=== PATIENT | female | born 1985 | race Caucasian/White ===

== ENCOUNTER → 2016-09-09 | Outpatient (CLI) | payer BC | END | disposition home or self-care (01) | LOC: C.PAPS 12:20 | PROVIDERS: ATTEND Physician Assistant | DX: Z01.419 Encounter for gynecological examination (general) (routine) without abnormal findings (principal) ==

== ENCOUNTER 2021-11-15 11:49 | Inpatient (IN) ==
[2021-11-15] MEDS ORDERED: OXYTOCIN 30 UNITS/500 ML BAG IV PRN ×3 (12:21→16:56)
[2021-11-15] MEDS ORDERED: LACTATED RINGER'S 1,000 ML IV PRN (12:21)
[2021-11-15] MEDS ORDERED: PENICILLIN G POTASSIUM 6 MU in DEXTROSE 5% 250 ML IV STA (13:03)
[2021-11-15 13:19] LABS: Hematocrit (blood only) 33.7 % (34.1-44.9); Hemoglobin 11.7 g/dl (12.0-16.0); Mean Corpuscular Hemoglobin 29.8 pg (25.0-34.0); Mean Corpuscular Hgb Conc 34.7 g/dL (32.0-36.0); Mean Platelet Volume 10.4 fL (9.4-12.3); Platelet Count 191 K/uL (130-400); RDW Coefficient of Variation 12.4 % (11.5-14.5); RDW Standard Deviation 38.8 fL (36.4-46.3); Red Blood Count 3.92 M/uL (3.93-5.22); White Blood Count 10.55 K/ul (4.8-10.8)
[2021-11-15] MEDS ORDERED: SODIUM CHLORIDE 0.9% INJ 10 ML VIAL ONE (14:13)
[2021-11-15] MEDS ORDERED: BUPIVACAINE 0.25% 30 ML VIAL ONE (14:13)
[2021-11-15] MEDS ORDERED: ePHEDrine sulfate 50 MG/ML AMP ONE (14:13)
[2021-11-15] MEDS ORDERED: LIDOCAINE 2%/EPINEPHRINE 1:200,000 20 ML SDV ONE (14:13)
[2021-11-15] MEDS ORDERED: fentaNYL citrate 100 MCG/2 ML VIAL ONE (14:13)
[2021-11-15] MEDS ORDERED: fentaNYL 2MCG/ML ROPIVACAINE 1.25MG/ML 100 ML BAG EPI ONE (14:14)
--- NOTE | 2021-11-15 14:19 | History & Physical Report ---
Date of Service November 15, 2021 Assessment & Plan (1) Active labor: Plan: 36-year-old at 35 weeks 3 days gestational age presents in labor. - Fetus: Cat 1 - Labor: Progressing. Spontaneous rupture of membranes. Plan to get epidural. - GBS not yet collected. Prophylax with antibiotics - Vitals normal Admission and Anticipated Discharge Date Admission Date: November 15, 2021 History of Present Illness Chief Complaint: Spontaneous Rupture of Membranes Primary Care Provider: [place] Randhawa Miguelina De Guzman is a 36 y/o female currently at 35weeks 5days WGA with an RADHA 12/15/2021 as determined by LMP who is here after spontaneous rupture of membranes this morning at 9:50. States that she feels she was also having contractions every 5 minutes that last for about a minute. Her was complicated by advanced maternal age, positive for Hep B in 2016. Of note had prior PPROM with delivery at 33 weeks. + contractions; + movement; + fluid loss; - bloody show External FHT and external uterine monitors used; Category 1 tracing; moderate FHT variability. Had regular appointments with OB. Labs: (05/06/21) Blood type: A+ Antibody screen: negative H.7 (today) Hct: 33.7 (today) WBC: 10.55 (today) Plt: 191 (today) Rubella: immune VDRL/RPR: nonreactive Gonorrhea: not detected Chlamydia: not detected HIV: negative HbSAg: negative GBS: order placed Other screens: msafp declined panorama low risk--smp neg cf/sma Allergies Allergy/AdvReac Type Severity Reaction Status Date / Time No Known Allergies Allergy Verified 11/15/21 14:04 Home Medications Medication Instructions Recorded Confirmed Type prenat.vits,savannah,izc-wrug-eyalk 1 tab PO DAILY 03/18/19 11/15/21 History docusate sodium 100 mg capsule 100 mg PO DAILY PRN 01/20/20 11/15/21 History (Colace) Patient History Medical History Chronic fatigue Hepatitis B History of Brenda-Rizvi virus infection Hx of varicella Missed Surgical History History of tonsillectomy and adenoidectomy [place] teeth removed Family History Grandmother (Paternal) Diabetes Father Hypertension Dyslipidemia Grandmother (Maternal) Colorectal cancer Grandfather Bladder cancer Bone cancer Sister Premature labor in third trimester Family/Other Omphalocele Aunt Lung cancer Denies family history of Ovarian cancer Breast cancer Social History (Updated 04/28/21 @ 11:01 by Funmilayo KOEHLER RN) Smoking Status: Never smoker Hx Alcohol Use: No Hx Substance Use: No Preferred Language: Icelandic Social Science Manager Required: No Beliefs That Will Affect Care: None marital status: marital status details: Justo De Guzman (42) [phone] Current Living Situation: Spouse Current Living Situation Comment: and daughter, 3 dogs current occupational status: employed current occupation: Speech Language Pathologist- [employer] Other Information That Helps Us Care for You: No Feels Safe at Home: Yes Safety Concerns: Feels Safe At This Time Assistive Devices: None OB History : 3 Full term: 0 Premature: 1 Total Number of Induced Abortions: 0 Total Number of Spontaneous Abortions: 1 Ectopics: 0 Multiple births: 0 Number of Living Children: 1 Review of Systems Denies fever, chills, sweats Denies shortness of breath, difficulty breathing, chest pain, palpitations, chest pressure. Denies breast pain. Denies dysuria. Denies headache or changes in vision. Physical Exam Physical Exam: General: Alert, oriented. No acute distress. Cardiac: Regular rate and rhythm, no murmurs/rubs/gallops. Respiratory: Clear to auscultation bilaterally a/p, no wheezes/rales/rhonchi. No increased work of breathing. Symmetrical chest rise. No respiratory distress. Abdomen: Gravid; Position of fetus: longitudinal cephalic confirmed with US Pelvic: Dilation 4 cm; Effacement 100% ; Station [address] Juan Lower Extremities: No lower extremity edema or swelling. No deep calf pain. Jazmyne's negative bilaterally Results & Data ([facility]) Vital Signs (Past 12 Hours) Vital Signs Temp Pulse Resp BP 11/15/21 13:36 36.9 C 20 11/15/21 12:05 96 H 132/73 Laboratory Results 11/15/21 11/15/21 Range/Units 12:58 12:15 WBC 10.55 (4.8-10.8) K/ul RBC 3.92 L (3.93-5.22) M/uL Hgb 11.7 L (12.0-16.0) g/dl Hct 33.7 L (34.1-44.9) % MCV 86.0 (80.0-100.0) fL MCH 29.8 (25.0-34.0) pg MCHC 34.7 (32.0-36.0) g/dL RDW Std Deviation 38.8 (36.4-46.3) fL RDW Coeff of Josiane 12.4 (11.5-14.5) % Plt Count 191 (130-400) K/uL MPV 10.4 (9.4-12.3) fL SARS-CoV-2, RNA, NAAT NEGATIVE (NEGATIVE) Supervising Physician Co-Signing Physician Notes Resident Physician Supervision Note: I was present with Dr. Pierson during the history and exam. I discussed the case with the resident and agree with the findings and plan as documented in the note. Any exceptions or clarifications are listed here: 36yo @ 09/11 with SROM and spontaneous labor. AMA, h/o Hep B+. Admit to L&D. Penicillin for GBS unknown. Documented By: Marleny Juan DO Resident Activity Tracking Resident Involvement: Resident Care Provided Care Provided: OB Delivery
[2021-11-15] MEDS ORDERED: ONDANSETRON INJ 2 MG/ML 2 ML VIAL IV PRN (14:45)
[2021-11-15] MEDS ORDERED: diphenhydrAMINE 50 MG/ML VIAL IV PRN (14:45)
[2021-11-15] MEDS ORDERED: ePHEDrine sulfate 50 MG/ML AMP IV PRN (14:45)
[2021-11-15] MEDS ORDERED: NALOXONE HCL 1 MG in SODIUM CHLORIDE 0.9% 1000ML 1,000 ML IV PRN (14:45)
[2021-11-15] MEDS ORDERED: NALBUPHINE HCL INJ 10 MG/ML AMP IV PRN (14:45)
[2021-11-15] MEDS ORDERED: NALOXONE HCL 0.4 MG/1 ML VIAL/CARP IV PRN (14:45)
[2021-11-15] MEDS ORDERED: fentaNYL 2MCG/ML ROPIVACAINE 1.25MG/ML 100 ML BAG EPI PRN (14:45)
--- NOTE | 2021-11-15 14:48 | Anesthesiology Consultation ---
Date of Service November 15, 2021 Assessment & Plan Chart Review Chart Review: Patient NOT seen in Pre Admission Testing and Acceptable Risk for Labor Epidural Consults Requested none ASA ASA2 Proposed Anesthesia Anesthesia Type: Labor Epidural and CSE Risk / Benefits Reviewed With: PT / POA / Parent / Guardian, Accepts Plan and Informed Consent Obtained History Height/Weight Height: 5 ft 3 in Weight: 85.275 kg Allergies Allergy/AdvReac Type Severity Reaction Status Date / Time No Known Allergies Allergy Verified 11/15/21 14:04 Medications Home Medications Medication Instructions Recorded Confirmed Last Taken prenat.vits,savannah,zjo-zccc-yehyq 1 tab PO DAILY 03/18/19 11/15/21 11/15/21 07:00 docusate sodium 100 mg capsule 100 mg PO DAILY PRN 01/20/20 11/15/21 11/14/21 21:00 (Colace) Active Medications Generic Name Dose Route Start Last Admin Trade Name Freq PRN Reason Stop Dose Admin Lactated Ringer's 1,000 mls @ 125 mls/hr 11/15/21 12:21 11/15/21 13:56 Lr IV 11/17/21 12:20 125 mls/hr .Q8H PRN Administration L&D Protocol Protocol NPO Date Last Intake of Fluids: 11/15/21 Time Last Intake of Fluids: 14:00 Date Last Intake of Solids: 11/15/21 Time Last Intake of Solids: 08:00 Past Medical History Medical History Chronic fatigue Hepatitis B History of Brenda-Rizvi virus infection Hx of varicella Missed Exercise / Class Metabolic Activity II 4-5 Yardwork/Stairs/Walk up hill Past Family History Family History Grandmother (Paternal) Diabetes Father Hypertension Dyslipidemia Grandmother (Maternal) Colorectal cancer Grandfather Bladder cancer Bone cancer Sister Premature labor in third trimester Family/Other Omphalocele Aunt Lung cancer Denies family history of Ovarian cancer Breast cancer Past Surgical History Surgical History History of tonsillectomy and adenoidectomy [place] teeth removed Past Anesthesia History No Hx of Anesthesia Complications and No Family Hx of Anesthesia Complications History of PONV No Hx of PONV and No Hx of Motion Sickness Social History Smoking Status: Never smoker Hx Alcohol Use: No Hx Substance Use: No substance use type: does not use Review of Systems no chest pain or sob Physical Exam Vital Signs Last Vital Signs Temp 36.9 C 11/15/21 13:36 Pulse 119 H 11/15/21 14:45 Resp 20 11/15/21 13:36 BP 132/73 11/15/21 12:05 Pulse Ox 99 11/15/21 14:45 ENMT Mouth: no TMJ abnormality Thyromental Distance: > or= 3.5 Finger Breadths Mallampati Class: II Neck normal visual inspection Respiratory normal respiratory effort Auscultation: lungs clear to auscultation bilaterally Cardiovascular Rate/Rhythm: regular rate and regular rhythm Musculoskeletal Spine: normal cervical ROM Neurologic moves all extremities Psychiatric Orientation: alert and oriented x 3 Testing Laboratory Results 11/15/21 12:58
--- NOTE | 2021-11-15 16:32 | Delivery Summary ---
Vaginal Delivery Summary Date of Service November 15, 2021 Vaginal Delivery Summary and 1st Degree LAC Vaginal Delivery Summary: Pre-delivery diagnoses: 36yo @ 35 5/, spontaneous labor/SROM, AMA, h/o Hep B 2015 (current testing negative) Post-delivery diagnoses: same Procedure: spontaneous vaginal delivery Surgeon: Malreny Juan DO Complications: none Findings: Viable female . Apgars: 8/8. Weight pending, please see nursery records. Estimated blood loss: Description of delivery: The patient arrived in spontaneous labor with SROM at home, rec'd one dose of Penicillin for GBS, progressed to complete with epidural anesthesia. She then began to push. She spontaneously vaginally delivered a viable from the cephalic presentation. The head delivered in DAMARIS position. Tight nuchal cord - delivered through. The anterior shoulder de livered, followed by the posterior shoulder, followed by the body. The baby was placed on mother's abdomen and a spontaneous cry was heard. Delayed cord clamping was employed, and the cord was doubly clamped and cut. A segment was retained for cord gases. Cord blood was obtained. The placenta was delivered spontaneously intact with a 3-vessel cord. The uterus and vagina were swept of clots and debris. IV pitocin was given. The uterus became firm. The cervix, vagina, and perineum were inspected and a first degree laceration was noted and repaired in standard fashion with 3-0 vicryl. Excellent hemostasis was observed. The mother and baby are recovering in stable and good condition in the room. Sponge, needle and instrument counts were correct x 2. Marleny Juan DO [facility] Vaginal Delivery Charge Vaginal Delivery Codes: 04734 global code for the antepartum, delivery, and post- Delivery Type Details: and 1st Degree LAC
[2021-11-15] MEDS ORDERED: HYDROCORTISONE ACETATE 25 MG SUPP PR PRN (16:56)
[2021-11-15] MEDS ORDERED: ACETAMINOPHEN 325 MG TAB PO PRN (16:56)
[2021-11-15] MEDS ORDERED: oxyCODONE/ACETAMINOPHEN 5mg/325mg TAB PO PRN (16:56)
[2021-11-15] MEDS ORDERED: DIPHTHERIA/TETANUS/PERTUSSIS 0.5 ML SYR/VIAL IM ONE (16:56)
[2021-11-15] MEDS ORDERED: BENZOCAINE 20% AER SPR 82.5 GM CAN EXT PRN (16:56)
[2021-11-15] MEDS ORDERED: bisacodyL 10 MG SUPP PR PRN (16:56)
[2021-11-15 16:59] LABS: Base Excess Cord Venous Blood -0.5 mEq/L (-7.7-1.9); Cord Venous Blood HCO3 24 mmol/L (18.4-26.8); Cord Venous Blood PCO2 39 mmHg (30.4-57.2); Cord Venous Blood PO2 41 mmHg (14.1-43.3); O2 Saturation Cord Venous Bld 82.2 % (<68)
--- NOTE | 2021-11-15 17:06 | Anesthesia Procedure Note ---
Date of Service November 15, 2021 Anesthesia Post Epidural Note Vital Signs Vital Signs: Temp Pulse Resp BP Pulse Ox 36.7 C 90 18 105/55 L 98 11/15/21 16:31 11/15/21 17:02 11/15/21 16:31 11/15/21 17:02 11/15/21 16:25 Pain Intensity Abdomen: Pain Intensity: 1 Notes Mental Status: alert / awake / arousable and participated in evaluation Nausea / Vomiting: adequately controlled Pain: adequately controlled Airway Patency, RR, SpO2: stable & adequate BP & HR: stable & adequate Hydration State: stable & adequate Neuraxial Anesthesia: was administered and sensory block is resolving Anesthetic Complications: no major complications apparent and Pt Satisfied with anesthetic care Epidural: Removed without complications and With tip intact
[2021-11-15] MEDS ORDERED: PENICILLIN G POTASSIUM 3 MU in DEXTROSE 5% 100 ML IV PRN (17:17)
[2021-11-15 17:25] LABS: CO2 Cord Arterial Blood 51 mmHg (39.1-73.5); HCO3 Cord Arterial Blood 25 mmol/L (19.7-28.5); Oxygen Sat Cord Arterial Blood < 60.0 % (<60); PO2 Cord Arterial Blood 24 mmHg (4.1-31.7)
[2021-11-15] MEDS: IBUPROFEN 600 MG TAB PO PRN (20:30)
[2021-11-15] MEDS: DOCUSATE SODIUM 100 MG CAP PO SCH (20:31)
[2021-11-16] MEDS: IBUPROFEN 600 MG TAB PO PRN ×4 (03:25→19:47)
--- NOTE | 2021-11-16 05:00 | Obstetrical Progress Note ---
Date of Service <Britany Pierson DO - Last Filed: 11/16/21 06:16> November 16, 2021 Assessment & Plan <Britany Pierson DO - Last Filed: 11/16/21 06:16> (1) Status post vaginal delivery: Feels well today. Eating well, voiding well, ambulating well. - OOB, ambulation, diet progression as tolerated <Marleny Juan, DO - Last Filed: 11/16/21 07:50> (1) Status post vaginal delivery: Subjective <Britany Pierson, DO - Last Filed: 11/16/21 06:16> Miguelina is a 36 y/o female who is now PPD # 1 following spontaneous vaginal delivery at 35 5/7 . Reports feeling well overall this morning. Minimal abdominal cramping & pain well managed on analgesics. Voiding. Tolerating meals overnight and able to ambulate some. Is passing gas, but bowel movements. Some persistent lochia with some improvement this morning. Breast/Bottle feeding. Review of Systems Denies fever, chills, sweats Denies shortness of breath, difficulty breathing, chest pain, palpitations, chest pressure. Denies breast pain. Denies dysuria. Denies headache or changes in vision. Physical Exam <Britany Pierson DO - Last Filed: 11/16/21 06:16> General: Alert, oriented. No acute distress. Cardiac: Regular rate and rhythm, no murmurs/rubs/gallops. Respiratory: Clear to auscultation bilaterally a/p, no wheezes/rales/rhonchi. No increased work of breathing. Symmetrical chest rise. No respiratory distress. Abdomen: Soft, nontender, nondistended. Bowel sounds present. Uterus: Uterine fundus firm Lower Extremities: No lower extremity edema or swelling. No deep calf pain. Jazmyne's negative bilaterally. Results & Data ([facility]) <Britany Pierson, DO - Last Filed: 11/16/21 06:16> Vital Signs (Past 12 Hours) Vital Signs Temp Pulse Pulse Resp BP BP 11/16/21 04:00 36.6 C 83 18 92/63 L 11/15/21 23:55 36.7 C 83 17 92/56 L 11/15/21 20:00 36.9 C 84 18 105/70 11/15/21 18:31 88 114/64 11/15/21 18:16 91 H 114/63 11/15/21 18:01 85 108/65 11/15/21 17:46 86 112/64 11/15/21 17:31 90 109/61 11/15/21 17:16 81 104/57 L 11/15/21 17:02 90 105/55 L Laboratory Results 11/15/21 11/15/21 11/15/21 Range/Units 16:14 16:14 12:58 WBC 10.55 (4.8-10.8) K/ul RBC 3.92 L (3.93-5.22) M/uL Hgb 11.7 L (12.0-16.0) g/dl Hct 33.7 L (34.1-44.9) % MCV 86.0 (80.0-100.0) fL MCH 29.8 (25.0-34.0) pg MCHC 34.7 (32.0-36.0) g/dL RDW Std Deviation 38.8 (36.4-46.3) fL RDW Coeff of Josiane 12.4 (11.5-14.5) % Plt Count 191 (130-400) K/uL MPV 10.4 (9.4-12.3) fL Cord ABG pH 7.30 (7.1-7.38) Cord ABG pCO2 51 (39.1-73.5) mmHg Cord ABG pO2 24 (4.1-31.7) mmHg Cord ABG HCO3 25 (19.7-28.5) mmol/L Cord ABG Base Excess -2.0 (-9-1.8) mEq/L Cord ABG O2 Sat < 60.0 (<60) % Cord VBG pH 7.40 (7.20-7.44) Cord VBG pCO2 39 (30.4-57.2) mmHg Cord VBG pO2 41 (14.1-43.3) mmHg Cord VBG HCO3 24 (18.4-26.8) mmol/L Cord VBG Base Excess -0.5 (-7.7-1.9) mEq/L Cord VBG O2 Sat 82.2 H (<68) % Blood Gas Comments B[facility]TISTE BAPTISTE SARS-CoV-2, RNA, NAAT (NEGATIVE) 11/15/21 Range/Units 12:15 WBC (4.8-10.8) K/ul RBC (3.93-5.22) M/uL Hgb (12.0-16.0) g/dl Hct (34.1-44.9) % MCV (80.0-100.0) fL MCH (25.0-34.0) pg MCHC (32.0-36.0) g/dL RDW Std Deviation (36.4-46.3) fL RDW Coeff of Josiane (11.5-14.5) % Plt Count (130-400) K/uL MPV (9.4-12.3) fL Cord ABG pH (7.1-7.38) Cord ABG pCO2 (39.1-73.5) mmHg Cord ABG pO2 (4.1-31.7) mmHg Cord ABG HCO3 (19.7-28.5) mmol/L Cord ABG Base Excess (-9-1.8) mEq/L Cord ABG O2 Sat (<60) % Cord VBG pH (7.20-7.44) Cord VBG pCO2 (30.4-57.2) mmHg Cord VBG pO2 (14.1-43.3) mmHg Cord VBG HCO3 (18.4-26.8) mmol/L Cord VBG Base Excess (-7.7-1.9) mEq/L Cord VBG O2 Sat (<68) % Blood Gas Comments SARS-CoV-2, RNA, NAAT NEGATIVE (NEGATIVE) <Marleny Juan DO - Last Filed: 11/16/21 07:50> Co-Signing Physician Notes Resident Physician Supervision Note: I was present with Dr. Pierson during the history and exam. I discussed the case with the resident and agree with the findings and plan as documented in the note. Any exceptions or clarifications are listed here: PPD#1 doing well. Routine care. Anticipate DC home tomorrow. Documented By: Marleny Juan DO
[2021-11-16 06:41] LABS: Hematocrit (blood only) 34.3 % (34.1-44.9); Hemoglobin 11.7 g/dl (12.0-16.0)
[2021-11-16] MEDS: PRENATAL VITAMIN 1 TAB PO SCH (09:27)
[2021-11-16] MEDS: DOCUSATE SODIUM 100 MG CAP PO SCH ×2 (09:27→19:43)
[2021-11-16] MEDS ORDERED: bisacodyL 5 MG TABEC PO SCH (20:00)
[2021-11-17] MEDS: IBUPROFEN 600 MG TAB PO PRN ×3 (00:13→18:05)
--- NOTE | 2021-11-17 05:28 | Obstetrical Progress Note ---
Date of Service November 17, 2021 Assessment & Plan (1) Status post vaginal delivery: Plan Feels well today. Eating well, voiding well, ambulating well. - OOB, ambulation, diet progression as tolerated - Discharge today Andrews Mcintyre is a 36 y/o female who is now PPD # 2 following spontaneous vaginal delivery at 35 5/7 . Reports feeling well overall this morning. Minimal abdominal cramping & pain well managed on analgesics. Voiding. Tolerating meals overnight and able to ambulate some. Is passing gas, but no bowel movements. Some persistent lochia with some improvement this morning. Breast/Bottle feeding, has been pumping but milk has not come in yet. Review of Systems Denies fever, chills, sweats Denies shortness of breath, difficulty breathing, chest pain, palpitations, chest pressure. Denies breast pain. Denies dysuria. Denies headache or changes in vision. Physical Exam General: Alert, oriented. No acute distress. Cardiac: Regular rate and rhythm, no murmurs/rubs/gallops. Respiratory: Clear to auscultation bilaterally a/p, no wheezes/rales/rhonchi. No increased work of breathing. Symmetrical chest rise. No respiratory distress. Abdomen: Soft, nontender, nondistended. Bowel sounds present. Uterus: Uterine fundus firm Lower Extremities: No lower extremity edema or swelling. No deep calf pain. Jazmyne's negative bilaterally. Results & Data ([facility]) Vital Signs (Past 12 Hours) Vital Signs Temp Pulse Resp BP 11/17/21 00:00 36.5 C 60 18 109/72 11/16/21 20:00 36.5 C 62 18 106/73 Resident Activity Tracking Resident Involvement: Resident Care Provided Care Provided: OB Delivery (Post )
[2021-11-17] MEDS: DOCUSATE SODIUM 100 MG CAP PO SCH (08:42)
[2021-11-17] MEDS: PRENATAL VITAMIN 1 TAB PO SCH (08:42)
== END 2021-11-17 18:05 | disposition home or self-care (01) | DRG 807 ==
LOC: OPB 11:49 → 4S1 11:50 → 4E2 19:12